=== PATIENT | male | born 1940 | race Asian ===

== ENCOUNTER 2024-06-24 23:02 | Inpatient (IN) | payer MEDICARE, MEDICAID ==
[~2024-06-24] VITALS: Ht 152.4 cm; Wt 50.3 kg
[2024-06-25 01:04] LABS: BASOPHILS % 0.4 % (0.0-2.0); EOSINOPHILS % 1.2 % (0.0-5.0); HEMATOCRIT. 44.7 % (42.0-52.0); HEMOGLOBIN. 14.7 g/dL (14.0-18.0); LYMPHOCYTES % 15.9 % (20.0-50.0); MEAN CORPUSCULAR HGB CONC 32.8 g/dL (31.0-37.0); MEAN CORPUSCULAR VOLUME 94.3 fL (80.0-94.0); MEAN PLATELET VOLUME 7.8 fl (7.4-10.4); MONOCYTES % 2.9 % (2.0-8.0); NEUTROPHILS % 79.6 % (40.0-76.0); PLATELET 251 x1000/uL (130-400); RED BLOOD CELL COUNT 4.74 mill/uL (4.7-6.1); RED CELL DISTRIBUTION WIDTH 17.5 % (11.6-14.6); WHITE BLOOD COUNT 5.9 x1000/uL (4.5-11.0)
[2024-06-25 01:15] LABS: CHLORIDE 99 mEq/L (98-107); POTASSIUM 4.3 mEq/L (3.5-5.1); SODIUM 131 mEq/L (136-145)
[2024-06-25 01:16] LABS: CARBON DIOXIDE 21 mEq/L (21-32)
[2024-06-25 01:17] LABS: CALCIUM 9.5 mg/dL (8.7-10.4)
[2024-06-25 01:21] LABS: CREATININE 0.5 mg/dL (0.6-1.3); GLUCOSE 124 mg/dL (70-105)
[2024-06-25 01:22] LABS: TROPONIN I HIGH SENSITIVITY 5 ng/L (3.0-53); UREA NITROGEN BLOOD 10 mg/dL (9-23)
[2024-06-25 01:27] LABS: INR 0.9; PARTIAL THROMBOPLASTIN TIME 28.9 sec (23.4-31.0); PROTHROMBIN TIME 10.6 sec (9.6-11.0)
[2024-06-25] MEDS: SODIUM CHLORIDE 0.9% 1,000 ML IV ONE (01:27)
[2024-06-25 02:05] LABS: *AMPHETAMINES SCREEN URINE NEGATIVE (NEGATIVE); *BARBITURATES SCREEN URINE NEGATIVE (NEGATIVE); *BENZODIAZEPINES SCREEN URINE NEGATIVE (NEGATIVE); *COCAINE SCREEN URINE NEGATIVE (NEGATIVE); METHADONE URINE SCREEN NEGATIVE (NEGATIVE)
[2024-06-25 02:06] LABS: CANNABINOID URINE SCREEN NEGATIVE (NEGATIVE); ECSTASY MDMA SCREEN URINE NEGATIVE (NEGATIVE); OPIATES URINE SCREEN NEGATIVE (NEGATIVE); PHENCYCLIDINE URINE SCREEN NEGATIVE (NEGATIVE)
[2024-06-25 03:29] LABS: ETHANOL BLOOD < 10 mg/dL (<10)
[2024-06-25 08:00] VITALS: BP 110/63; PULSE 93; RESP 19; TEMP 36.28068; O2SAT 100
[2024-06-25 08:35] VITALS: BP 110/63; PULSE 93; RESP 19; TEMP 36.3068
[2024-06-25] MEDS ORDERED: ONDANSETRON HCL 4MG/2ML INJ IV PRN (10:45)
[2024-06-25 12:00] VITALS: BP 119/60; PULSE 80; RESP 18; TEMP 36.16956; O2SAT 97
[2024-06-25 12:16] LABS: HEPATITIS B SURFACE ANTIGEN NEGATIVE (Negative)
[2024-06-25] MEDS: ENOXAPARIN 30MG/0.3ML SYR SUBCUT SCH (12:36)
[2024-06-25 12:38] LABS: HEPATITIS C AB NON REACTIVE (Neg) (Negative)
[2024-06-25 16:00] VITALS: BP 101/58; PULSE 87; RESP 18; TEMP 36.44736; O2SAT 96
[2024-06-25] MEDS ORDERED: LATA2.5D14 OP (17:03)
[2024-06-25] MEDS ORDERED: LISI40TA13 PO (17:03)
[2024-06-25] MEDS ORDERED: BRIM15DR8 OP (17:03)
[2024-06-25] MEDS ORDERED: PYRI100T10 PO (17:03)
[2024-06-25] MEDS ORDERED: SITA100T11 PO (17:03)
[2024-06-25] MEDS ORDERED: BACL-141 PO (17:03)
[2024-06-25] MEDS ORDERED: CYAN250T3 PO (17:03)
[2024-06-25] MEDS ORDERED: THIA100T88 PO (17:03)
[2024-06-25] MEDS ORDERED: DORZ10DR32 EACHEYE (17:03)
[2024-06-25] MEDS ORDERED: GLIP5TAB22 PO (17:03)
[2024-06-25] MEDS ORDERED: TRAM-534 PO (17:25)
[2024-06-25] MEDS ORDERED: CHLO25TA2 PO (17:25)
[2024-06-25] MEDS ORDERED: [UNRECOGNIZED DRUG - CODE] PO (17:25)
[2024-06-25] MEDS ORDERED: ROSU5TAB PO (17:25)
[2024-06-25] MEDS ORDERED: LEVO25TA7 PO (17:25)
[2024-06-25] MEDS ORDERED: MULT-477 PO (17:25)
[2024-06-25 20:00] VITALS: BP 150/72; PULSE 95; RESP 19; TEMP 36.61404; O2SAT 99
[2024-06-26] VITALS: BP 131/62; PULSE 76; RESP 18; TEMP 36.3918; O2SAT 98
[2024-06-26] MEDS: SODIUM CHLORIDE 0.9% 1,000 ML IV SCH (00:15)
[2024-06-26 04:00] VITALS: BP 135/79; PULSE 79; RESP 18; TEMP 37.00296; O2SAT 98
[2024-06-26] MEDS: INSULIN LISPRO 100 UNITS/ML SUBCUT SCH (07:30)
[2024-06-26] MEDS ORDERED: DEXTROSE 50% WATER 50ML SYRINGE IV PRN (07:30)
[2024-06-26] MEDS ORDERED: NALOXONE HCL 0.4MG/ML VIAL IV PRN (07:45)
[2024-06-26 08:00] VITALS: BP 119/54; PULSE 83; RESP 18; TEMP 36.28068; O2SAT 100
[2024-06-26] MEDS: BLOOD SUGAR DIAGNOSTIC STRIP TEST SCH (08:24)
[2024-06-26] MEDS: DORZOLAM/TIMOLOL 2.23/0.68% OPHTH DROPS 10ML EACHEYE SCH (09:16)
[2024-06-26] MEDS: LEVOTHYROXINE SODIUM 25MCG TABLET PO SCH (09:16)
[2024-06-26] MEDS: PANTOPRAZOLE 40MG DR TABLET PO SCH (09:16)
[2024-06-26] MEDS ORDERED: LIDOCAINE HCL/EPINEPHRINE 1%-EPI 1:100,000 20ML VIAL INFIL NR (11:45)
[2024-06-26 12:00] VITALS: BP 118/53; PULSE 71; RESP 18; TEMP 36.61404; O2SAT 97
[2024-06-26 16:00] VITALS: BP 106/57; PULSE 78; RESP 17; TEMP 36.33624; O2SAT 97
[2024-06-26 20:00] VITALS: BP 129/51; PULSE 73; RESP 18; TEMP 36.50292; O2SAT 100
[2024-06-26] MEDS: ATORVASTATIN CALCIUM 20MG TABLET PO SCH (21:27)
[2024-06-27] VITALS: BP 125/59; PULSE 78; RESP 19; TEMP 36.78072; O2SAT 100
[2024-06-27 04:00] VITALS: BP 144/64; PULSE 76; RESP 19; TEMP 36.72516; O2SAT 100
[2024-06-27 08:00] VITALS: BP 123/58; PULSE 80; RESP 18; TEMP 36.05844; O2SAT 97
[2024-06-27 08:24] LABS: CARBON DIOXIDE 22 mEq/L (21-32); CHLORIDE 105 mEq/L (98-107); POTASSIUM 3.6 mEq/L (3.5-5.1); SODIUM 136 mEq/L (136-145)
[2024-06-27 08:26] LABS: CALCIUM 8.1 mg/dL (8.7-10.4)
[2024-06-27 08:30] LABS: CREATININE 0.5 mg/dL (0.6-1.3); GLUCOSE 134 mg/dL (70-105); UREA NITROGEN BLOOD 6 mg/dL (9-23)
[2024-06-27 08:46] LABS: BASOPHILS % 0.6 % (0.0-2.0); EOSINOPHILS % 5.5 % (0.0-5.0); HEMATOCRIT 37.6 % (42.0-52.0); HEMATOCRIT. 37.6 % (42.0-52.0); HEMOGLOBIN 12.4 g/dL (14.0-18.0); HEMOGLOBIN. 12.4 g/dL (14.0-18.0); LYMPHOCYTES % 18.2 % (20.0-50.0); MEAN CORPUSCULAR HEMOGLOBIN 30.9 pg (28.0-32.0); MEAN CORPUSCULAR HGB CONC 32.9 g/dL (31.0-37.0); MEAN CORPUSCULAR VOLUME 93.7 fL (80.0-94.0); MEAN PLATELET VOLUME 8.4 fl (7.4-10.4); NEUTROPHILS % 64.7 % (40.0-76.0); PLATELET 165 x1000/uL (130-400); RED BLOOD CELL COUNT 4.01 mill/uL (4.7-6.1); RED CELL DISTRIBUTION WIDTH 17.1 % (11.6-14.6)
[2024-06-27] MEDS: SODIUM HYPOCHLORITE 0.125% 473ML SOLUTION TOP SCH (09:19)
[2024-06-27 12:00] VITALS: BP 121/64; PULSE 76; RESP 16; TEMP 36.114; O2SAT 98
[2024-06-27] MEDS ORDERED: NITROGLYCERIN OINT 1GM/INCH UDPKT TD SCH (14:00)
[2024-06-27 16:00] VITALS: BP 125/67; PULSE 79; RESP 15; TEMP 36.28068; O2SAT 97
[2024-06-27 20:00] VITALS: BP 106/53; PULSE 78; RESP 19; TEMP 37.28076; O2SAT 98
[2024-06-28] VITALS: BP 101/51; PULSE 78; RESP 19; TEMP 37.39188; O2SAT 99
[2024-06-28 04:00] VITALS: BP 115/68; PULSE 79; RESP 18; TEMP 37.2252; O2SAT 98
[2024-06-28] MEDS: LEVOTHYROXINE SODIUM 25MCG TABLET PO SCH (06:19)
[2024-06-28 08:00] VITALS: BP 136/64; PULSE 76; RESP 17; TEMP 37.11408; O2SAT 100
[2024-06-28] MEDS: FAMOTIDINE 20MG TABLET PO SCH (09:35)
[2024-06-28 12:00] VITALS: BP 136/64; PULSE 76; RESP 17; TEMP 37.11408; O2SAT 100
[2024-06-28 16:00] VITALS: BP 149/68; PULSE 71; RESP 18; TEMP 36.114; O2SAT 99
[2024-06-28 20:00] VITALS: BP 127/68; PULSE 74; RESP 19; TEMP 36.72516; O2SAT 98
[2024-06-29] VITALS: BP 150/69; PULSE 76; RESP 20; TEMP 37.33632; O2SAT 99
[2024-06-29 04:00] VITALS: BP 136/63; PULSE 74; RESP 18; TEMP 36.50292; O2SAT 98
[2024-06-29 08:00] VITALS: BP 155/54; PULSE 77; RESP 15; TEMP 37.11408; O2SAT 98
[2024-06-29] MEDS: HYDROCODONE/ACETAMINOPHEN 5/325MG TABLET PO PRN (10:04)
[2024-06-29 12:00] VITALS: BP 135/64; PULSE 65; RESP 15; TEMP 36.50292; O2SAT 99
[2024-06-29 16:00] VITALS: BP 153/67; PULSE 68; RESP 17; TEMP 36.6696; O2SAT 94
[2024-06-30] VITALS (7 sets, daily range): BP systolic 135–153; BP diastolic 62–75; PULSE 72–76; RESP 18–20; TEMP 27.2244–36.6696; O2SAT 96–100
[2024-07-01] VITALS: BP 125/56; PULSE 73; TEMP 36.44736
[2024-07-01 04:00] VITALS: BP 154/69; PULSE 71; RESP 20; TEMP 36.44736; O2SAT 98
[2024-07-01 08:00] VITALS: BP 127/52; PULSE 68; RESP 18; TEMP 36.16956; O2SAT 98
[2024-07-01 12:00] VITALS: BP 106/49; PULSE 75; RESP 18; TEMP 36.44736; O2SAT 100
[2024-07-01 16:00] VITALS: BP 103/46; PULSE 74; RESP 18; TEMP 36.6696; O2SAT 100
[2024-07-01] MEDS: HYDROCODONE/ACETAMINOPHEN 5/325MG TABLET PO PRN (16:34)
[2024-07-01 20:00] VITALS: BP 133/61; PULSE 97; RESP 18; TEMP 36.78072; O2SAT 97
[2024-07-01] MEDS: LATANOPROST 0.005% OPHTH DROPS 2.5ML BOTHEYE SCH (22:21)
[2024-07-02] VITALS (7 sets, daily range): BP systolic 104–160; BP diastolic 52–72; PULSE 61–81; RESP 17–18; TEMP 36.22512–37.61412; O2SAT 95–99
[2024-07-02] MEDS: BRIMONIDINE 0.2% OPHTH DROPS 5ML BOTHEYE SCH (09:08)
[2024-07-03] VITALS: BP 145/72; PULSE 78; RESP 18; TEMP 36.50292; O2SAT 96
[2024-07-03 04:00] VITALS: BP 146/66; PULSE 70; RESP 18; TEMP 37.72524; O2SAT 96
[2024-07-03 08:00] VITALS: BP 167/89; PULSE 103; RESP 18; TEMP 36.28068; O2SAT 96
[2024-07-03 12:00] VITALS: BP 134/60; PULSE 71; RESP 18; TEMP 36.22512; O2SAT 98
[2024-07-03 16:00] VITALS: BP 149/62; PULSE 68; RESP 18; TEMP 36.05844; O2SAT 99
[2024-07-03 20:00] VITALS: BP 119/50; PULSE 75; RESP 20; TEMP 36.05844; O2SAT 95
[2024-07-04] VITALS: BP 158/70; PULSE 75; RESP 18; TEMP 37.00296; O2SAT 98
[2024-07-04 04:00] VITALS: BP 169/72; PULSE 82; RESP 20; TEMP 36.3918; O2SAT 100; O2SAT 99
[2024-07-04 08:00] VITALS: BP 148/79; PULSE 68; RESP 17; TEMP 36.50292; O2SAT 96
[2024-07-04 12:00] VITALS: BP 110/49; PULSE 69; RESP 16; TEMP 36.50292; O2SAT 96
[2024-07-04] MEDS ORDERED: DIPHENHYDRAMINE 25MG CAPSULE PO PRN (15:45)
[2024-07-04 16:00] VITALS: BP 139/72; PULSE 79; RESP 15; TEMP 36.72516; O2SAT 95
[2024-07-04 20:00] VITALS: BP 129/58; PULSE 74; RESP 19; TEMP 36.3918; O2SAT 99
[2024-07-05] VITALS: BP 142/66; PULSE 69; RESP 19; TEMP 36.78072; O2SAT 98
[2024-07-05 04:00] VITALS: BP 130/78; PULSE 70; RESP 18; TEMP 36.83628; O2SAT 98
[2024-07-05 08:00] VITALS: BP 158/71; PULSE 71; RESP 20; TEMP 36.44736; O2SAT 95
[2024-07-05] MEDS: MULTIVITAMINS,THER W-MINERALS TABLET PO SCH (10:17)
[2024-07-05] MEDS: ZINC SULFATE 220 MG ( 50 ) CAPSULE PO SCH (10:17)
[2024-07-05] MEDS: ASCORBIC ACID 500 MG TABLET PO SCH (10:17)
[2024-07-05] MEDS: CLOBETASOL 0.05 % CREAM 15GM TOP SCH (10:18)
[2024-07-05 12:00] VITALS: BP 136/60; PULSE 73; RESP 18; TEMP 36.78072; O2SAT 94
[2024-07-05 16:00] VITALS: BP 149/64; PULSE 74; RESP 19; TEMP 36.28068; O2SAT 94
[2024-07-05 17:14] VITALS: BP 146/68; PULSE 80; TEMP 97.6; O2SAT 98
== END 2024-07-05 17:30 | DRG 40 ==
LOC: ER 23:02 → EDBD 23:02 → 5WST 06-25 02:21 → EDBEDREQDT 06-25 02:39 → EDBEDREQTM 06-25 02:39 → EDBEDREQ 06-25 02:39 → 7EST 06-25 08:31
PROVIDERS: ADMIT Internal Medicine; ATTEND Internal Medicine
PROC: 0KBN0ZZ Excision of Right Hip Muscle, Open Approach (ICD-10-PCS; principal; 2024-06-27)
PROC: 0KBN0ZZ Excision of Right Hip Muscle, Open Approach (ICD-10-PCS; 2024-07-04)
DX: S14.0XXA Concussion and edema of cervical spinal cord, initial encounter (principal); G82.50 Quadriplegia, unspecified; L89.154 Pressure ulcer of sacral region, stage 4; L89.323 Pressure ulcer of left buttock, stage 3; L89.313 Pressure ulcer of right buttock, stage 3; M48.02 Spinal stenosis, cervical region; E78.5 Hyperlipidemia, unspecified; E11.9 Type 2 diabetes mellitus without complications; R15.9 Full incontinence of feces; I10 Essential (primary) hypertension; Z20.822 Contact with and (suspected) exposure to COVID-19; L89.626 Pressure-induced deep tissue damage of left heel; L89.616 Pressure-induced deep tissue damage of right heel; W06.XXXA Fall from bed, initial encounter; Y93.89 Activity, other specified; Y92.89 Other specified places as the place of occurrence of the external cause; Y99.8 Other external cause status
CPT/HCPCS: 36415; 71045; 72141; 80048; 80305; 80320; 82040; 82962; 83036; 83880; 84484; 85025; 85027; 86705; 87340; 87426; 92610; 93005; 97162; 97166; 97530; 97535; 99285; J1650; J1815; J3490; J7030; Q0163; G0480